=== PATIENT | female | born 1965 | race Caucasian/White ===

== ENCOUNTER 2016-08-06 15:41 | Inpatient (IN) | payer OTHER ==
[~2016-08-06] VITALS: Ht 167.6 cm; Wt 96.6 kg
[2016-08-06] MEDS ORDERED: ALBUTEROL FS 2.5 MG/3 ML VIAL.NEB ONE ×2 (16:23→18:07)
[2016-08-06] MEDS ORDERED: IPRATROPIUM NEB FS 0.5 MG/2.5 ML AMPUL.NEB ONE (16:23)
[2016-08-06] MEDS ORDERED: predniSONE 20 MG TABLET ONE (16:27)
[2016-08-06] MEDS ORDERED: predniSONE 20 MG TABLET PO ONE (16:30)
[2016-08-06] MEDS ORDERED: ALBUTEROL FS 2.5 MG/3 ML VIAL.NEB CONTNEB ONE (16:30)
[2016-08-06] MEDS ORDERED: IPRATROPIUM NEB FS 0.5 MG/2.5 ML AMPUL.NEB NEB ONE (16:30)
[2016-08-06] MEDS ORDERED: IV NS 0.9% 1,000 ML IV ONE (17:21)
[2016-08-06] MEDS ORDERED: IV SET PRIMARY PUMP SET 1 EA INFUS.SET MC ONE ×2 (17:29→22:17)
[2016-08-06] MEDS ORDERED: Magnesium 1GM/D5W 100ML PREMIX 100 ML IV ONE ×2 (17:29→18:08)
[2016-08-06] MEDS ORDERED: IV NS 0.9% 1,000 ML ONE ×2 (17:29→21:10)
[2016-08-06 17:38] LABS: BASOPHILS % (AUTO) 0.7 % (0.0-2.0); DIFF TOTAL % 100 %; EOSINOPHILS # (AUTO) 0.2 /CMM (0.0-0.7); EOSINOPHILS % (AUTO) 2.9 % (0.0-6.0); HEMATOCRIT 40 % (33-45); HEMOGLOBIN 13.2 g/dL (11.5-14.8); LYMPHOCYTES # (AUTO) 2.5 /CMM (0.8-4.8); LYMPHOCYTES % (AUTO) 38.4 % (20.0-44.0); MEAN CORPUSCULAR HEMOGLOBIN 29 PG (26.0-33.0); MEAN CORPUSCULAR HGB CONC 33 g/dl (31.0-36.0); MEAN CORPUSCULAR VOLUME 86 fL (82-100); MONOCYTES # (AUTO) 0.8 /CMM (0.1-1.30); NEUTROPHILS # (AUTO) 2.9 /CMM (1.8-8.9); PLATELET COUNT (AUTO) 205 /CMM (150-450); RED BLOOD CELL COUNT(AUTO) 4.64 MIL/uL (4.0-5.2); WHITE BLOOD COUNT (AUTO) 6.4 K/uL (4.3-11.0)
[2016-08-06] MEDS: Magnesium 1GM/D5W 100ML PREMIX 200 ML IV ONE ×2 (17:38→17:40)
[2016-08-06 17:39] LABS: CALCIUM, SERUM 9.1 mg/dL (8.5-10.1); CREATININE 0.8 mg/dL (0.6-1.3); POTASSIUM 3.2 mmol/L (3.5-5.1)
[2016-08-06 17:53] LABS: LACTIC ACID 1.7 mmol/L (0.4-2.0)
[2016-08-06] MEDS ORDERED: ALBUTEROL FS 2.5 MG/0.5 ML VIAL.NEB NEB ONE (18:30)
[2016-08-06] MEDS ORDERED: POTASSIUM CHLORIDE 20 MEQ TAB.PRT.SR PO ONE ×2 (18:56→19:00)
[2016-08-06] MEDS ORDERED: IOHEXOL-350 100 ML VIAL IV ONE (20:41)
[2016-08-06] MEDS ORDERED: IV NS 0.9% 250 ML IV ONE (20:41)
[2016-08-06] MEDS ORDERED: CT SWABBABLE VALVE TRANS SET 1 EA INFUS.SET MC ONE (20:41)
[2016-08-06] MEDS ORDERED: IV LR 1000 ML 1,000 ML IV ONE (21:00)
[2016-08-06] MEDS ORDERED: IV SET PRIMARY 1 EA INFUS.SET MC ONE ×2 (21:10→21:47)
[2016-08-06] MEDS ORDERED: IV LR 1000 ML 1,000 ML ONE (21:13)
[2016-08-06] MEDS ORDERED: LEVOFLOXACIN 750 MG /D5W 150ML 150 ML IV ONE (21:47)
[2016-08-06 22:00] VITALS: BP 113/70
[2016-08-06] MEDS ORDERED: HYDROCODONE/APAP 5/325MG 1 EACH TABLET PO PRN (22:00)
[2016-08-06] MEDS ORDERED: IPRATROPIUM NEB FS 0.5 MG/2.5 ML AMPUL.NEB NEB PRN (22:00)
[2016-08-06] MEDS ORDERED: Z GUARD REMEDY 2 OZ OINT TP PRN (22:00)
[2016-08-06] MEDS ORDERED: LEVOFLOXACIN 750 MG /D5W 150ML PIGGYBACK IV ONE (22:00)
[2016-08-06] MEDS ORDERED: MAG HYDROX/AL HYDROX/SIMETH 30 ML UDC PO PRN (22:00)
[2016-08-06] MEDS ORDERED: ALBUTEROL FS 2.5 MG/3 ML VIAL.NEB NEB PRN (22:00)
[2016-08-06] MEDS: LEVOFLOXACIN 750 MG /D5W 150ML 750 MG in PREMIX 1 EA IV SCH (22:00)
[2016-08-06] MEDS ORDERED: ACETAMINOPHEN 325 MG TABLET PO PRN (22:00)
[2016-08-06] MEDS ORDERED: ZOLPIDEM TARTRATE 5 MG TABLET PO PRN (22:00)
[2016-08-06] MEDS ORDERED: ONDANSETRON HCL/PF 4 MG/2 ML VIAL IVP PRN (22:00)
[2016-08-06] MEDS ORDERED: MAGNESIUM HYDROXIDE 30 ML UDC PO PRN (22:00)
[2016-08-06] MEDS ORDERED: IV D5/0.45 NACL 1,000 ML IV ONE (22:17)
[2016-08-06] MEDS ORDERED: SECONDARY IV SET 1 EA INFUS.SET MC ONE (22:18)
[2016-08-06 22:24] LABS: ABG BASE EXCESS -3.3 mmol/L; ABG HCO3 19.8 mmol/L; ABG PCO2 30.3 mmHg (35.0-45.0); ABG PH 7.434 (7.350-7.450); ABG PO2 93.5 mmHg (75.0-100.0); ABG TOTAL HEMOGLOBIN 13.1 G/dL (12.0-16.0); ALLEN TEST Pass; AaDO2 19.9 mmHg; O2Hb 95.3 % (94.0-97.0)
[2016-08-07] VITALS (7 sets, daily range): BP systolic 119–134; BP diastolic 65–85
[2016-08-07] MEDS: IV D5/0.45 NACL 1,000 ML IV PRN ×2 (00:15→18:42)
[2016-08-07] MEDS ORDERED: methylPREDNISolone SOD SUCC 40 MG/ML VIAL ONE (00:25)
[2016-08-07] MEDS ORDERED: methylPREDNISolone SOD SUCC 125 MG/2ML VIAL ONE ×2 (00:33→06:25)
[2016-08-07] MEDS: methylPREDNISolone SOD SUCC 125 MG/2ML VIAL IV SCH ×4 (00:43→17:29)
[2016-08-07] MEDS ORDERED: MAG HYDROX/AL HYDROX/SIMETH 30 ML UDC ONE (01:47)
[2016-08-07 07:21] LABS: BASOPHILS % (AUTO) 0.1 % (0.0-2.0); DIFF TOTAL % 100 %; HEMATOCRIT 37 % (33-45); HEMOGLOBIN 12.1 g/dL (11.5-14.8); LYMPHOCYTES # (AUTO) 0.8 /CMM (0.8-4.8); LYMPHOCYTES % (AUTO) 10.7 % (20.0-44.0); MEAN CORPUSCULAR HEMOGLOBIN 28 PG (26.0-33.0); MEAN CORPUSCULAR HGB CONC 33 g/dl (31.0-36.0); MEAN CORPUSCULAR VOLUME 86 fL (82-100); MONOCYTES # (AUTO) 0.1 /CMM (0.1-1.30); MONOCYTES % (AUTO) 1.4 % (2.0-12.0); NEUTROPHILS # (AUTO) 6.9 /CMM (1.8-8.9); NEUTROPHILS % (AUTO) 87.8 % (43.0-81.0); PLATELET COUNT (AUTO) 247 /CMM (150-450); WHITE BLOOD COUNT (AUTO) 7.9 K/uL (4.3-11.0)
[2016-08-07] MEDS: PANTOPRAZOLE 40 MG TABLET.DR PO SCH (07:30)
[2016-08-07 07:49] LABS: CALCIUM, SERUM 8.9 mg/dL (8.5-10.1); CREATININE 0.7 mg/dL (0.6-1.3); PHOSPHORUS 2.4 mg/dL (2.5-4.9); POTASSIUM 4.1 mmol/L (3.5-5.1)
[2016-08-07 08:18] LABS: THYROID STIMULATING HORMONE 0.334 uIU/mL (0.358-3.74)
[2016-08-07] MEDS: GUAIFENESIN/CODEINE 10 ML UDC PO PRN ×2 (10:44→14:51)
[2016-08-07 11:26] LABS: KETONES,URINE NEGATIVE (NEGATIVE); LEUKOCYTE ESTERASE ,URINE 1+ (NEGATIVE); PH,URINE 6.5 (5.0-8.0)
[2016-08-07 11:28] LABS: ADD UA MICROSCOPIC YES
[2016-08-07] MEDS ORDERED: K PHOS NEUTRAL 250 MG TABLET PO ONE (11:30)
[2016-08-07 11:40] LABS: ADD URINE CULTURE YES; RBC,URINE 0-2 /HPF (0-2)
[2016-08-07] MEDS ORDERED: SECONDARY IV SET 1 EA INFUS.SET MC ONE (21:22)
[2016-08-07] MEDS: LEVOFLOXACIN 750 MG /D5W 150ML 750 MG in PREMIX 1 EA IV SCH (22:18)
[2016-08-08] MEDS: methylPREDNISolone SOD SUCC 125 MG/2ML VIAL IV SCH ×4 (00:35→17:26)
[2016-08-08] MEDS: GUAIFENESIN/CODEINE 10 ML UDC PO PRN ×4 (00:40→21:47)
[2016-08-08 07:01] LABS: CALCIUM, SERUM 9.2 mg/dL (8.5-10.1); CREATININE 0.8 mg/dL (0.6-1.3); PHOSPHORUS 2.9 mg/dL (2.5-4.9); POTASSIUM 4.9 mmol/L (3.5-5.1)
[2016-08-08] MEDS: PANTOPRAZOLE 40 MG TABLET.DR PO SCH (07:30)
[2016-08-08 08:00] VITALS: BP 126/87
[2016-08-08 16:00] VITALS: BP 129/86
[2016-08-08] MEDS: IV D5/0.45 NACL 1,000 ML IV PRN (17:25)
[2016-08-08 20:00] VITALS: BP 140/85
[2016-08-08 20:55] VITALS: BP 140/85
[2016-08-08] MEDS: LEVOFLOXACIN 750 MG /D5W 150ML 750 MG in PREMIX 1 EA IV SCH (21:41)
[2016-08-09] MEDS: methylPREDNISolone SOD SUCC 125 MG/2ML VIAL IV SCH ×2 (00:35→06:09)
[2016-08-09] MEDS: GUAIFENESIN/CODEINE 10 ML UDC PO PRN (06:16)
[2016-08-09 06:53] LABS: CALCIUM, SERUM 8.8 mg/dL (8.5-10.1); CREATININE 0.7 mg/dL (0.6-1.3); POTASSIUM 4.2 mmol/L (3.5-5.1)
[2016-08-09 08:00] VITALS: BP 130/92
[2016-08-09] MEDS: PANTOPRAZOLE 40 MG TABLET.DR PO SCH (08:16)
[2016-08-09] MEDS: IV D5/0.45 NACL 1,000 ML IV PRN (10:01)
[2016-08-09] MEDS: GUAIFENESIN/D-METHORPHAN HB 5 ML UDC PO PRN ×2 (14:38→21:23)
[2016-08-09 16:00] VITALS: BP 123/72
[2016-08-09] MEDS: methylPREDNISolone SOD SUCC 40 MG/ML VIAL IV SCH (16:33)
[2016-08-09 20:00] VITALS: BP 128/82
[2016-08-09 20:34] VITALS: BP 128/82
[2016-08-09] MEDS ORDERED: LEVOFLOXACIN (750 MG) 750 MG TABLET PO SCH (22:00)
[2016-08-10] MEDS: GUAIFENESIN/D-METHORPHAN HB 5 ML UDC PO PRN ×2 (02:11→08:06)
[2016-08-10] MEDS: PANTOPRAZOLE 40 MG TABLET.DR PO SCH (07:30)
[2016-08-10 07:48] LABS: CALCIUM, SERUM 8.9 mg/dL (8.5-10.1); CREATININE 0.8 mg/dL (0.6-1.3); POTASSIUM 4.9 mmol/L (3.5-5.1)
[2016-08-10 08:00] VITALS: BP 125/76
[2016-08-10] MEDS: methylPREDNISolone SOD SUCC 40 MG/ML VIAL IV SCH (08:07)
[2016-08-10] MEDS: IV D5/0.45 NACL 1,000 ML IV PRN (08:53)
== END 2016-08-10 14:30 | disposition home or self-care (01) | DRG 139 ==
LOC: ER 16:08 → MED 21:50 → TELE 08-07 00:30 → MED 08-07 14:46
DX: J15.9 Unspecified bacterial pneumonia (principal); J96.01 Acute respiratory failure with hypoxia; N17.0 Acute kidney failure with tubular necrosis; E87.6 Hypokalemia; J45.901 Unspecified asthma with (acute) exacerbation
CPT/HCPCS: 36415; 36600; 71010-TC; 80048-TC; 80061-TC; 81000-TC; 83605-TC; 83735-TC; 84100-TC; 84443-TC; 85025-TC; 85378-TC; 87081-TC; 87086-TC; A4216; A4606; J1956; J2920; J2930; J3475; J3490; J7030; J7050; J7120; Q9967; Z7610

== ENCOUNTER 2016-08-26 23:03 | Emergency (ER) | payer OTHER ==
[~2016-08-26] VITALS: Ht 167.6 cm; Wt 93.0 kg
[2016-08-27] MEDS ORDERED: IPRATROPIUM NEB FS 0.5 MG/2.5 ML AMPUL.NEB NEB ONE (00:30)
[2016-08-27] MEDS ORDERED: predniSONE 20 MG TABLET PO ONE (00:30)
[2016-08-27] MEDS ORDERED: ALBUTEROL FS 2.5 MG/3 ML VIAL.NEB CONTNEB ONE (00:30)
--- NOTE | 2016-08-27 00:42 | NUR ---
blood drawn by wheel fitter. rt paged for sharif vogt.
[2016-08-27] MEDS ORDERED: ALBUTEROL FS 2.5 MG/3 ML VIAL.NEB ONE (00:47)
[2016-08-27 00:48] LABS: BASOPHILS # (AUTO) 0.1 /CMM (0.0-0.2); BASOPHILS % (AUTO) 1.5 % (0.0-2.0); EOSINOPHILS # (AUTO) 0.4 /CMM (0.0-0.7); EOSINOPHILS % (AUTO) 7.5 % (0.0-6.0); HEMATOCRIT 38 % (33-45); LYMPHOCYTES # (AUTO) 1.8 /CMM (0.8-4.8); LYMPHOCYTES % (AUTO) 34.5 % (20.0-44.0); MEAN CORPUSCULAR HEMOGLOBIN 29 PG (26.0-33.0); MEAN CORPUSCULAR HGB CONC 34 g/dl (31.0-36.0); MEAN CORPUSCULAR VOLUME 85 fL (82-100); MONOCYTES # (AUTO) 0.5 /CMM (0.1-1.30); MONOCYTES % (AUTO) 9.5 % (2.0-12.0); NEUTROPHILS # (AUTO) 2.5 /CMM (1.8-8.9); PLATELET COUNT (AUTO) 227 /CMM (150-450); RDW COEFFICIENT OF VARIATION 13.6 (11.5-15.0); RED BLOOD CELL COUNT(AUTO) 4.51 MIL/uL (4.0-5.2); WHITE BLOOD COUNT (AUTO) 5.2 K/uL (4.3-11.0)
[2016-08-27] MEDS ORDERED: IPRATROPIUM NEB FS 0.5 MG/2.5 ML AMPUL.NEB ONE (00:48)
--- NOTE | 2016-08-27 00:53 | NUR ---
rt at [facility] for hhn tx.
[2016-08-27 00:56] LABS: CALCIUM, SERUM 8.8 mg/dL (8.5-10.1); CREATININE 0.7 mg/dL (0.6-1.3); POTASSIUM 3.9 mmol/L (3.5-5.1)
[2016-08-27] MEDS ORDERED: predniSONE 20 MG TABLET ONE (01:26)
--- NOTE | 2016-08-27 02:12 | NUR ---
Patient discharged to home in stable condition. Written and verbal after care instructions given. Patient verbalizes understanding of instruction. ambulatory with a steady gait noted. pt aaox4 no acute distress noted, resp even and unlabored.
[2016-08-27 02:13] VITALS: BP 127/76
== END 2016-08-27 02:14 | disposition home or self-care (01) ==
LOC: ER 23:05
DX: J40 Bronchitis, not specified as acute or chronic (principal)
CPT/HCPCS: 36415; 71010; 80048; 85025; 94644; 99285; A4606; J7512; Z7610

== ENCOUNTER 2017-05-17 17:09 | Emergency (ER) | payer OTHER ==
[~2017-05-17] VITALS: Ht 167.6 cm; Wt 93.0 kg
[2017-05-17] MEDS ORDERED: Magnesium 1GM/D5W 100ML PREMIX 200 ML IV ONE ×2 (17:38→17:53)
[2017-05-17] MEDS ORDERED: ALBUTEROL FS 2.5 MG/3 ML VIAL.NEB ONE (17:47)
[2017-05-17] MEDS ORDERED: IPRATROPIUM NEB FS 0.5 MG/2.5 ML AMPUL.NEB ONE (17:47)
--- NOTE | 2017-05-17 17:49 | NUR ---
CALLED RT FOR BREATHING TX
--- NOTE | 2017-05-17 17:49 | NUR ---
LAC #20 IV ACCESS. BLOOD SAMPLE COLLECTED SENT TO LAB
[2017-05-17] MEDS ORDERED: DEXAMETHASONE SOD PHOSPHATE 10 MG/ML VIAL ONE (17:53)
[2017-05-17] MEDS ORDERED: DEXAMETHASONE SOD PHOSPHATE 10 MG/ML VIAL IV ONE (18:00)
[2017-05-17] MEDS ORDERED: ALBUTEROL FS 2.5 MG/3 ML VIAL.NEB CONTNEB ONE (18:00)
[2017-05-17] MEDS ORDERED: IPRATROPIUM NEB FS 0.5 MG/2.5 ML AMPUL.NEB NEB ONE (18:00)
--- NOTE | 2017-05-17 18:52 | NUR ---
Patient discharged to home in stable condition. Written and verbal after care instructions given. Patient verbalizes understanding of instruction.
--- NOTE | 2017-05-17 18:52 | NUR ---
IV removed. Catheter intact and site benign. Pressure and 4x4 applied to site. No bleeding noted.
[2017-05-17 19:01] VITALS: BP 140/90
== END 2017-05-17 19:01 | disposition home or self-care (01) ==
LOC: ER 17:11
DX: J40 Bronchitis, not specified as acute or chronic (principal); Z90.710 Acquired absence of both cervix and uterus
CPT/HCPCS: 71010; 87804 ×2; 94640; 96365; 96375; 99284; A4606; J1100; J3475; Z7610; 87400

== ENCOUNTER 2017-07-08 15:38 | Emergency (ER) | payer OTHER ==
[~2017-07-08] VITALS: Ht 167.6 cm; Wt 55.3 kg
[2017-07-08] MEDS ORDERED: IV NS 0.9% 1,000 ML BAG IV ONE (16:00)
[2017-07-08] MEDS ORDERED: ONDANSETRON HCL/PF 4 MG/2 ML VIAL IVP ONE (16:00)
[2017-07-08] MEDS ORDERED: ONDANSETRON HCL/PF 4 MG/2 ML VIAL ONE (16:02)
[2017-07-08 16:13] LABS: BASOPHILS % (AUTO) 0.6 % (0.0-2.0); EOSINOPHILS # (AUTO) 0.1 /CMM (0.0-0.7); EOSINOPHILS % (AUTO) 2.1 % (0.0-6.0); HEMATOCRIT 39 % (33-45); HEMOGLOBIN 13.8 g/dL (11.5-14.8); LYMPHOCYTES # (AUTO) 0.8 /CMM (0.8-4.8); LYMPHOCYTES % (AUTO) 28.6 % (20.0-44.0); MEAN CORPUSCULAR HEMOGLOBIN 30 PG (26.0-33.0); MEAN CORPUSCULAR HGB CONC 35 g/dl (31.0-36.0); MEAN CORPUSCULAR VOLUME 84 fL (82-100); MONOCYTES # (AUTO) 0.4 /CMM (0.1-1.30); MONOCYTES % (AUTO) 14.1 % (2.0-12.0); NEUTROPHILS # (AUTO) 1.5 /CMM (1.8-8.9); NEUTROPHILS % (AUTO) 54.6 % (43.0-81.0); PLATELET COUNT (AUTO) 133 /CMM (150-450); RDW COEFFICIENT OF VARIATION 12.2 (11.5-15.0); RED BLOOD CELL COUNT(AUTO) 4.68 MIL/uL (4.0-5.2); WHITE BLOOD COUNT (AUTO) 2.9 K/uL (4.3-11.0)
[2017-07-08 16:16] LABS: CREATININE 0.8 mg/dL (0.6-1.3); POTASSIUM 4.2 mmol/L (3.5-5.1)
[2017-07-08 16:22] LABS: ALBUMIN 3.9 g/dL (3.4-5.0); BILIRUBIN,DIRECT 0.1 mg/dL (0.0-0.2); BILIRUBIN,TOTAL 0.6 mg/dL (0.2-1.0); TOTAL PROTEIN, SERUM 7.5 g/dL (6.4-8.2)
[2017-07-08 17:22] VITALS: BP 116/68
[2017-07-08 17:32] LABS: BAND % (MANUAL) 10 % (0.0-5.0); BASOPHILS % (MANUAL) 0 % (0.0-2.0); EOSINOPHILS % (MANUAL) 1 % (0-4); LYMPHOCYTES % (MANUAL) 25 % (16-48); MONOCYTES % (MANUAL) 8 % (0-11.0); NEUTROPHILS % (MANUAL) 56 (42-76)
== END 2017-07-08 17:24 | disposition home or self-care (01) ==
LOC: ER 15:40
DX: R11.2 Nausea with vomiting, unspecified (principal); B34.9 Viral infection, unspecified; Z90.710 Acquired absence of both cervix and uterus
CPT/HCPCS: 36415; 80048; 80076; 83690; 85025; 96361; 96374; 99284; A4606; J2405; J7030; Z7610

== ENCOUNTER 2017-12-04 12:11 | Emergency (ER) | payer OTHER ==
[~2017-12-04] VITALS: Ht 167.6 cm; Wt 79.4 kg
--- NOTE | 2017-12-04 12:15 | NUR ---
PRESENTS TO ER C/O ABD PAIN W/ N/V X 2 DAYS. FEELING WEAK. A/OX 4, BREATHING EVEN AND UNLABORED. NO SOB, NAD, VITALS STABLE. SAFETY AND COMFORT MEASURES IN PLACE. AWAITING MD ORDERS.
--- NOTE | 2017-12-04 12:47 | NUR ---
NEW IV STARTED ON RAC, 18G, BLOOD DRAWN AND SENT TO LAB.
[2017-12-04] MEDS ORDERED: ONDANSETRON HCL/PF 4 MG/2 ML VIAL ONE (12:49)
[2017-12-04] MEDS ORDERED: ACETAMINOPHEN ES 500 MG TABLET ONE (12:49)
[2017-12-04] MEDS ORDERED: ALBUTEROL FS 2.5 MG/3 ML VIAL.NEB ONE (12:53)
[2017-12-04 12:54] LABS: BASOPHILS # (AUTO) 0.1 /CMM (0.0-0.2); BASOPHILS % (AUTO) 0.7 % (0.0-2.0); EOSINOPHILS % (AUTO) 1.9 % (0.0-6.0); HEMATOCRIT 41 % (33-45); HEMOGLOBIN 13.9 g/dL (11.5-14.8); LYMPHOCYTES # (AUTO) 1.3 /CMM (0.8-4.8); LYMPHOCYTES % (AUTO) 13.6 % (20.0-44.0); MEAN CORPUSCULAR HEMOGLOBIN 29 PG (26.0-33.0); MEAN CORPUSCULAR HGB CONC 34 g/dl (31.0-36.0); MEAN CORPUSCULAR VOLUME 85 fL (82-100); MONOCYTES # (AUTO) 0.7 /CMM (0.1-1.30); MONOCYTES % (AUTO) 7.3 % (2.0-12.0); NEUTROPHILS # (AUTO) 7.3 /CMM (1.8-8.9); NEUTROPHILS % (AUTO) 76.5 % (43.0-81.0); PLATELET COUNT (AUTO) 200 /CMM (150-450); RDW COEFFICIENT OF VARIATION 12.1 (11.5-15.0); WHITE BLOOD COUNT (AUTO) 9.6 K/uL (4.3-11.0)
[2017-12-04] MEDS ORDERED: IV NS 0.9% 1,000 ML BAG IV ONE (13:00)
[2017-12-04] MEDS ORDERED: ONDANSETRON HCL/PF 4 MG/2 ML VIAL IVP ONE (13:00)
[2017-12-04] MEDS ORDERED: ACETAMINOPHEN ES 500 MG TABLET PO ONE (13:00)
[2017-12-04] MEDS ORDERED: ALBUTEROL FS 2.5 MG/3 ML VIAL.NEB NEB ONE (13:00)
[2017-12-04 13:07] LABS: CALCIUM, SERUM 9.4 mg/dL (8.5-10.1); CREATININE 0.6 mg/dL (0.6-1.3); POTASSIUM 3.5 mmol/L (3.5-5.1)
[2017-12-04 13:12] LABS: ALBUMIN 3.9 g/dL (3.4-5.0); BILIRUBIN,DIRECT 0.2 mg/dL (0.0-0.2); TOTAL PROTEIN, SERUM 7.7 g/dL (6.4-8.2)
[2017-12-04] MEDS ORDERED: LEVOFLOXACIN (500MG) 500 MG TABLET PO ONE (13:30)
[2017-12-04] MEDS ORDERED: LEVOFLOXACIN (500MG) 500 MG TABLET ONE (13:51)
[2017-12-04 14:03] LABS: APPEARANCE,URINE Clear (CLEAR); BILIRUBIN,URINE Negative (NEGATIVE); BLOOD, URINE Negative Ery/uL (NEGATIVE); COLOR,URINE Yellow (YELLOW); KETONES,URINE 40 (NEGATIVE); LEUKOCYTE ESTERASE ,URINE Negative (NEGATIVE); NITRITE, URINE Negative (NEGATIVE); PROTEIN,URINE Negative (NEGATIVE); UGLUCOSE Negative (NEGATIVE); UROBILINOGEN,URINE 0.2 EU/dL (0.2)
[2017-12-04 14:08] LABS: BACTERIA,URINE None seen /HPF (None Seen); RBC,URINE 0-3 /HPF (0-2); SQUAMOUS EPITHELIAL CELL,UR Few /HPF (None Seen)
[2017-12-04 14:47] VITALS: BP 128/74
--- NOTE | 2017-12-04 14:48 | NUR ---
IV removed. Catheter intact and site benign. Pressure and 4x4 applied to site. No bleeding noted. Patient discharged to home in stable condition. Written and verbal after care instructions given. Patient verbalizes understanding of instruction.
== END 2017-12-04 14:48 | disposition home or self-care (01) ==
LOC: ER 12:12
DX: J22 Unspecified acute lower respiratory infection (principal); A41.9 Sepsis, unspecified organism; Z90.710 Acquired absence of both cervix and uterus
CPT/HCPCS: 36415; 71045-TC; 80048-TC; 80076-TC; 81000-TC; 83605-TC; 85025-TC; 87040-TC; 87086-TC; A4606; J2405; J7030; J7040; Z7610

== ENCOUNTER 2018-06-11 08:17 | Inpatient (IN) | payer OTHER ==
[~2018-06-11] VITALS: Ht 167.6 cm; Wt 102.5 kg
--- NOTE | 2018-06-11 08:25 | NUR ---
BIB SELF FROM HOME C/O CHEST PAIN SINCE 11PM LAST NIGHT, RADIATES TO L BACK,SHOULDER, PRESSURE LIKE PAIN, PS 8/10. ALERT AND OREINTED X4, BREATHING EVEN AND UNLABORED WITH NO DISTRESS NOTED. SKIN WARM TO TOUCH AND INTACT. AWAITING TO BE SEEN BY
[2018-06-11 08:59] LABS: BASOPHILS # (AUTO) 0.1 /CMM (0.0-0.2); BASOPHILS % (AUTO) 2.6 % (0.0-2.0); EOSINOPHILS % (AUTO) 6.3 % (0.0-6.0); HEMATOCRIT 43 % (33-45); HEMOGLOBIN 14.7 g/dL (11.5-14.8); LYMPHOCYTES # (AUTO) 1.9 /CMM (0.8-4.8); LYMPHOCYTES % (AUTO) 34.4 % (20.0-44.0); MEAN CORPUSCULAR HGB CONC 34 g/dl (31.0-36.0); MEAN CORPUSCULAR VOLUME 87 fL (82-100); MONOCYTES # (AUTO) 0.6 /CMM (0.1-1.30); NEUTROPHILS # (AUTO) 2.6 /CMM (1.8-8.9); NEUTROPHILS % (AUTO) 46.7 % (43.0-81.0); PLATELET COUNT (AUTO) 211 /CMM (150-450); RED BLOOD CELL COUNT(AUTO) 4.97 MIL/uL (4.0-5.2); WHITE BLOOD COUNT (AUTO) 5.6 K/uL (4.3-11.0)
[2018-06-11 09:10] LABS: CALCIUM, SERUM 9.2 mg/dL (8.5-10.1); CARBON DIOXIDE 27 mmol/L (21-32); CHLORIDE 104 mmol/L (98-107); CREATININE 0.8 mg/dL (0.6-1.3); GLUCOSE 139 mg/dL (74-106); POTASSIUM 4.1 mmol/L (3.5-5.1); SODIUM SERUM 139 mmol/L (136-145); UREA NITROGEN, BLOOD 14 mg/dL (7-18)
[2018-06-11 09:16] LABS: ALANINE AMINOTRANSFERASE 71 U/L (12-78); ALBUMIN 3.9 g/dL (3.4-5.0); ALKALINE PHOSPHATASE 133 U/L (46-116); ASPARTATE AMINOTRANSFERASE 43 U/L (15-37); BILIRUBIN,DIRECT 0.1 mg/dL (0.0-0.2); BILIRUBIN,TOTAL 0.5 mg/dL (0.2-1.0); TOTAL PROTEIN, SERUM 7.6 g/dL (6.4-8.2)
[2018-06-11] MEDS ORDERED: ASPIRIN 325 MG TABLET ONE (09:44)
[2018-06-11] MEDS ORDERED: ASPIRIN 325 MG TABLET PO ONE (10:00)
--- NOTE | 2018-06-11 10:02 | NUR ---
PATIENT REMAINS STABLE, NO DISTRESS NOTED. VS ARE STABLE. WILL CONTINUE TO MONITOR.
--- NOTE | 2018-06-11 11:18 | NUR ---
REPORT GIVEN TO 3W MED/SURG ANDREINA TO GONZALO TO MONITOR CONTINUITY OF CARE.
[2018-06-11 12:00] VITALS: BP 123/76
[2018-06-11 12:15] VITALS: BP 123/76
--- NOTE | 2018-06-11 12:15 | NUR ---
RECEIVED PATIENT FROM ER VIA [facility]. PATIENT IS AMBULATORY, WALKED FROM [facility] TO BED IN STEADY GAIT. A/OX4, ABLE TO MAKE NEEDS KNOWN. TOLERATING ROOM AIR, SATTING 96%, VS WNL. NOT IN ANY FORM OF DISTRESS, NO SOB. CHEST PAIN 7/10 ON LEFT SIDE, "PRESSURE", NON-RADIATING. WILL ADMINISTER PAIN MEDICATION ORDERED. NOTIFIED MD THAT PATIENT IS IN THE UNIT AND WAITING FOR ADMITTING ORDERS. P;ACED PATIENT ON TELEMONITOR, SR 72. KEPT PATIENT SAFE AND COMFORTABLE. ALL BELONGINGS CHECK, NOTED ON CHECKLIST. NO WOUNDS OR BRUISE PER PATIENT. REFUSED BODY CHECK. ORIENTED PATIENT TO THE ROOM, SHOWED PATIENT HOW TO USE CALL LIGHT. BED IN LOW/LOCKED POSITION, SIDERAILS UPX2, SEMIFOWLERS POSITION, CALL LIGHT IN REACH. WILL CONTINUE TO MONIOTR ACCORDINGLY.
[2018-06-11] MEDS ORDERED: NITROGLYCERIN 0.4 MG/TAB BOTTLE SL PRN (12:30)
[2018-06-11] MEDS ORDERED: MORPHINE SULFATE INJ 4 MG/ML DISP.SYRIN IV PRN (12:30)
[2018-06-11] MEDS: ASPIRIN 81 MG TAB.CHEW PO SCH (12:57)
[2018-06-11] MEDS: CARVEDILOL 6.25 MG TABLET PO SCH ×2 (12:57→21:02)
--- NOTE | 2018-06-11 13:51 | NUR ---
REASSESSED PATIENT'S CHEST PAIN. PATIENT STATED A LITTLE BIT BETTER BUT STILL THERE. OFFERED PAIN MEDICATIONS X3 TIMES BUT PATIENT REFUSED. PATIENT STATED "NOT TOO MUCH MEDICATION, I'LL LET YOU KNOW IF I NEED ONE". WILL CONTINUE TO MONIOTR ACCORDINGLY.
[2018-06-11 15:30] VITALS: BP 122/87
--- NOTE | 2018-06-11 19:11 | NUR ---
RN CLOSING NOTES PATIENT IN STABLE CONDITION. ALL NEEDS ATTENDED AND PROVIDED. ALL DUE MEDICATIONS GIVEN ORDERED. KEPT PATENT SAFE AND COMFORTABLE. BED IN LOW/LOCKED POSITION, SIDERAILS UPX2, CALL LIGHT IN REACH. WILL CONTINUE TO MONITOR ACCORDINGLY.
--- NOTE | 2018-06-11 19:20 | NUR ---
TELE/RN OPENING NOTES PT RECEIVED AWAKE, RESTING COMFORTABLY IN BED. ON ROOM AIR, BREATHING EVEN AND UNLABORED. DENIES SOB, IN NO ACUTE DISTRESS. NOTES 5-10 CHEST DISCOMFORT HOWEVER REFUSING PRN NITRO AND MORPHINE AT THIS TIME. IV TO RIGHT HAND PATENT AND INTACT. EXTERNAL AUTO TIRE RECAPPER SHOWING SINUS RHYTHM 73. FOR LEXISCAN IN AM, WILL KEEP NPO POST MIDNIGHT. PT AWARE AND VERBALIZES UNDERSTANDING. CONSENTS SIGNED AND IN THE CHART. BED IN LOW/LOCKED POSITION WITH CALL LIGHT IN REACH. BILATERAL UPPER SIDE RAILS IN PLACE. WILL CONTINUE TO MONITOR
[2018-06-11 20:00] VITALS: BP 114/72
[2018-06-12] VITALS: BP 121/87
[2018-06-12 04:00] VITALS: BP 124/75
--- NOTE | 2018-06-12 06:42 | NUR ---
TELE/RN CLOSING NOTES PT WITH EYES CLOSED. OPENS EYES TO NAME. A/OX3. ON ROOM AIR, BREATHING EVEN AND UNLABORED. DENIES SOB, CHEST PAIN, N/V AT THIS TIME. IN NO ACUTE DISTRESS. ON EXTERNAL VAT TENDER SHOWING SB 58. IV TO RIGHT HAND PATENT AND INTACT. KEPT NPO POST MIDNIGHT FOR STRESS TEST. PT AWARE AND VERBALIZES UNDERSTANDING. NO SIGNIFICANT CHANGES OVERNIGHT. ALL NEEDS MET. KEPT COMFORTABLE DURING SHIFT. BED REMAINS IN LOW/LOCKED POSITION WITH CALL LIGHT IN REACH. BILATERAL UPPER SIDE RAILS IN PLACE. WILL ENDORSE TO DAY SHIFT RN KJ.
[2018-06-12 07:23] LABS: BASOPHILS # (AUTO) 0.1 /CMM (0.0-0.2); BASOPHILS % (AUTO) 2.5 % (0.0-2.0); HEMATOCRIT 41 % (33-45); HEMOGLOBIN 13.9 g/dL (11.5-14.8); LYMPHOCYTES # (AUTO) 1.9 /CMM (0.8-4.8); LYMPHOCYTES % (AUTO) 37.5 % (20.0-44.0); MEAN CORPUSCULAR HGB CONC 34 g/dl (31.0-36.0); MEAN CORPUSCULAR VOLUME 87 fL (82-100); MONOCYTES # (AUTO) 0.5 /CMM (0.1-1.30); MONOCYTES % (AUTO) 9.6 % (2.0-12.0); NEUTROPHILS # (AUTO) 2.2 /CMM (1.8-8.9); NEUTROPHILS % (AUTO) 44.4 % (43.0-81.0); PLATELET COUNT (AUTO) 205 /CMM (150-450); RED BLOOD CELL COUNT(AUTO) 4.72 MIL/uL (4.0-5.2); WHITE BLOOD COUNT (AUTO) 5.1 K/uL (4.3-11.0)
[2018-06-12 07:36] LABS: CALCIUM, SERUM 8.9 mg/dL (8.5-10.1); CREATININE 0.8 mg/dL (0.6-1.3); MAGNESIUM 1.8 mg/dL (1.8-2.4); PHOSPHORUS 4.4 mg/dL (2.5-4.9); POTASSIUM 4.6 mmol/L (3.5-5.1)
[2018-06-12 08:00] VITALS: BP 126/86
[2018-06-12] MEDS ORDERED: REGADENOSON 0.4 MG/5 ML DISP.SYRIN IVP ONE (08:00)
--- NOTE | 2018-06-12 08:00 | NUR ---
TELE/RN OPENING NOTES PT RECEIVED AWAKE, RESTING COMFORTABLY IN BED. ON ROOM AIR, BREATHING EVEN AND UNLABORED. DENIES SOB, IN NO ACUTE DISTRESS.IV H/L TO RIGHT HAND PATENT AND INTACT. EXTERNAL WEIGHER BULKER SHOWING SINUS RHYTHM 73. FOR SANJEEV THIS AM, WILL KEEP NPO .PT AWARE AND VERBALIZES UNDERSTANDING. CONSENTS SIGNED AND IN THE CHART. BED IN LOW/LOCKED POSITION WITH CALL LIGHT IN REACH. BILATERAL UPPER SIDE RAILS IN PLACE. WILL CONTINUE TO MONITOR
--- NOTE | 2018-06-12 08:20 | NUR ---
PT WAS BROUGHT IN NUCLEAR MED FOR LEXISCAN STRESS TEST PROCEDURE.REMAINS NPO.
[2018-06-12] MEDS ORDERED: ATORVASTATIN 10 MG TABLET PO SCH (09:00)
[2018-06-12] MEDS: ASPIRIN 81 MG TAB.CHEW PO SCH (09:42)
[2018-06-12] MEDS: CARVEDILOL 6.25 MG TABLET PO SCH (09:42)
[2018-06-12] MEDS ORDERED: ACETAMINOPHEN 325 MG TABLET PO PRN (10:30)
--- NOTE | 2018-06-12 10:33 | NUR ---
NM:CARDIAC STRESS TEST WAS COMPLETED. TECH:RB
[2018-06-12 12:30] VITALS: BP 119/86
--- NOTE | 2018-06-12 16:50 | NUR ---
DISCHARGED HOME WITH STABLE V/S.ACCOMPANIED BY HER VIA PRIVATE CAR.DENIES ANY CHEST PAIN,N/V OR ANY DISTRESS OR DISCOMFORT.DISCHARGE INSTRUCTIONS,MED RECONCILIATION GIVEN TO THE PT.IV H/L TO RT HAND REMOVED WITH NO BLEEDING NOTED.PT TOLERATED WELL.
== END 2018-06-12 17:00 | disposition home or self-care (01) | DRG 241 ==
LOC: ER 08:19 → TELE 11:42 → MED 06-12 09:07
PROVIDERS: ADMIT Internal Medicine; ATTEND Nurse Practitioner Acute Care
DX: K27.9 Peptic ulcer, site unspecified, unspecified as acute or chronic, without hemorrhage or perforation (principal); E66.9 Obesity, unspecified; I10 Essential (primary) hypertension; Z90.710 Acquired absence of both cervix and uterus; Z68.36 Body mass index [BMI] 36.0-36.9, adult; Z71.3 Dietary counseling and surveillance
CPT/HCPCS: 36415; 71045-TC; 80048-TC; 80061-TC; 80076-TC; 83735-TC; 84100-TC; 84484-TC; 85025-TC; 85730-TC; 87081-TC; 93307-TC; 93970-TC; A9502; G0378; J2270; J2785

== ENCOUNTER 2019-02-26 09:48 | Emergency (ER) | payer OTHER ==
[~2019-02-26] VITALS: Ht 167.6 cm; Wt 100.2 kg
--- NOTE | 2019-02-26 09:55 | NUR ---
BIB FAMILY, C/O "PRESSURE ON MY CHEST X1 DAY, ABDOMINAL AND BACK PAIN." -N/V, +HEADACHE. TO ER BED 12, HOOKED TO FURNACE COMBUSTION ANALYST, BREATHING COREY AND UNLABORED, NOT IN DISTRESS, CHANGED TO [facility]ICY ANALYST AT BEDSIDE, DR CALDWELL AT BEDSIDE FOR EVAL.
[2019-02-26 10:09] LABS: BASOPHILS # (AUTO) 0.2 /CMM (0.0-0.2); BASOPHILS % (AUTO) 3.7 % (0.0-2.0); EOSINOPHILS % (AUTO) 4.1 % (0.0-6.0); HEMATOCRIT 43 % (33-45); HEMOGLOBIN 14.6 g/dL (11.5-14.8); LYMPHOCYTES # (AUTO) 2.2 /CMM (0.8-4.8); LYMPHOCYTES % (AUTO) 39.9 % (20.0-44.0); MEAN CORPUSCULAR HGB CONC 34 g/dl (31.0-36.0); MEAN CORPUSCULAR VOLUME 87 fL (82-100); MONOCYTES # (AUTO) 0.5 /CMM (0.1-1.30); MONOCYTES % (AUTO) 9.2 % (2.0-12.0); NEUTROPHILS # (AUTO) 2.4 /CMM (1.8-8.9); NEUTROPHILS % (AUTO) 43.1 % (43.0-81.0); PLATELET COUNT (AUTO) 233 /CMM (150-450); RED BLOOD CELL COUNT(AUTO) 4.86 MIL/uL (4.0-5.2); WHITE BLOOD COUNT (AUTO) 5.5 K/uL (4.3-11.0)
[2019-02-26 10:19] LABS: CALCIUM, SERUM 9.4 mg/dL (8.5-10.1); CARBON DIOXIDE 28 mmol/L (21-32); CHLORIDE 105 mmol/L (98-107); CREATININE 0.7 mg/dL (0.6-1.3); GLUCOSE 134 mg/dL (74-106); POTASSIUM 3.8 mmol/L (3.5-5.1); SODIUM SERUM 140 mmol/L (136-145); UREA NITROGEN, BLOOD 17 mg/dL (7-18)
[2019-02-26] MEDS ORDERED: IBUPROFEN 400 MG TABLET ONE (10:48)
[2019-02-26 10:56] VITALS: BP 142/84
--- NOTE | 2019-02-26 10:56 | NUR ---
IV removed. Catheter intact and site benign. Pressure and 4x4 applied to site. No bleeding noted.Patient discharged to home in stable condition. Written and verbal after care instructions given. Patient verbalizes understanding of instruction.
[2019-02-26] MEDS ORDERED: IBUPROFEN 400 MG TABLET PO ONE (11:00)
== END 2019-02-26 10:57 | disposition home or self-care (01) ==
LOC: ER 09:52
DX: R10.13 Epigastric pain (principal); R07.89 Other chest pain; I10 Essential (primary) hypertension; Z90.710 Acquired absence of both cervix and uterus
CPT/HCPCS: 36415; 71045-TC; 80048-TC; 84484-TC; 85025-TC

== ENCOUNTER 2019-03-03 09:57 | Inpatient (IN) | payer OTHER ==
[~2019-03-03] VITALS: Ht 170.2 cm; Wt 101.2 kg
--- NOTE | 2019-03-03 10:13 | NUR ---
CAME IN FOR "Abdominal pain started couple days worse now. +nausea", TO ER BED 7, HOOKED TO MONITOR, CHANGED TO GOWN, PROVIDED W WARM BLANKET, AWAITING MD LOPEZ.
--- NOTE | 2019-03-03 11:18 | NUR ---
DR LUNDBERG AT BEDSIDE FOR EVAL.
[2019-03-03 11:29] LABS: BASOPHILS # (AUTO) 0.1 /CMM (0.0-0.2); EOSINOPHILS % (AUTO) 3.8 % (0.0-6.0); HEMATOCRIT 44 % (33-45); HEMOGLOBIN 14.9 g/dL (11.5-14.8); LYMPHOCYTES # (AUTO) 2.1 /CMM (0.8-4.8); LYMPHOCYTES % (AUTO) 41.3 % (20.0-44.0); MEAN CORPUSCULAR HGB CONC 34 g/dl (31.0-36.0); MEAN CORPUSCULAR VOLUME 88 fL (82-100); MONOCYTES # (AUTO) 0.6 /CMM (0.1-1.30); MONOCYTES % (AUTO) 11.6 % (2.0-12.0); NEUTROPHILS # (AUTO) 2.1 /CMM (1.8-8.9); NEUTROPHILS % (AUTO) 41.3 % (43.0-81.0); PLATELET COUNT (AUTO) 225 /CMM (150-450); RED BLOOD CELL COUNT(AUTO) 5.02 MIL/uL (4.0-5.2); WHITE BLOOD COUNT (AUTO) 5.1 K/uL (4.3-11.0)
[2019-03-03] MEDS ORDERED: ONDANSETRON HCL/PF 4 MG/2 ML VIAL IVP ONE (11:30)
[2019-03-03] MEDS ORDERED: IV NS 0.9% 1,000 ML BAG IV ONE (11:30)
[2019-03-03] MEDS ORDERED: HYDROMORPHONE INJ 2 MG/ML DISP.SYRIN IV ONE (11:30)
[2019-03-03] MEDS ORDERED: ONDANSETRON HCL/PF 4 MG/2 ML VIAL ONE ×2 (11:32→11:49)
[2019-03-03] MEDS ORDERED: MORPHINE SULFATE INJ 4 MG/ML DISP.SYRIN ONE ×2 (11:32→13:40)
--- NOTE | 2019-03-03 11:36 | NUR ---
PATIENT REFUSED MORPHINE AND DULCE, MADE MD AWARE, RECEIVED VERBAL ORDER OF TORADOL 30MG IV. CARRIED OUT
[2019-03-03] MEDS ORDERED: KETOROLAC TROMETHAMINE INJ 30 MG/ML VIAL ONE (11:38)
[2019-03-03 11:47] LABS: ALBUMIN 4.2 g/dL (3.4-5.0); BILIRUBIN,TOTAL 0.4 mg/dL (0.2-1.0); POTASSIUM 3.9 mmol/L (3.5-5.1)
--- NOTE | 2019-03-03 11:50 | NUR ---
PATIENT REQUESTED TO HAVE THE ZOFRAN FOR NAUSEA, MADE MD AWARE.
[2019-03-03 11:57] LABS: BILIRUBIN,DIRECT 0.1 mg/dL (0.0-0.2); CALCIUM, SERUM 9.2 mg/dL (8.5-10.1); CREATININE 0.7 mg/dL (0.6-1.3); TOTAL PROTEIN, SERUM 7.6 g/dL (6.4-8.2)
[2019-03-03] MEDS ORDERED: KETOROLAC TROMETHAMINE INJ 30 MG/ML VIAL IV ONE (12:00)
[2019-03-03] MEDS ORDERED: ONDANSETRON HCL/PF 4 MG/2 ML VIAL IV ONE (12:00)
[2019-03-03] MEDS ORDERED: MORPHINE SULFATE INJ 2 MG/ML DISP.SYRIN IV ONE ×2 (12:00→14:00)
--- NOTE | 2019-03-03 12:03 | NUR ---
WHEELED OUT VIA RNEY FOR CT SCAN
[2019-03-03 12:53] LABS: APPEARANCE,URINE Clear (CLEAR); BILIRUBIN,URINE Negative (NEGATIVE); BLOOD, URINE Negative Ery/uL (NEGATIVE); COLOR,URINE Yellow (YELLOW); KETONES,URINE Negative (NEGATIVE); LEUKOCYTE ESTERASE ,URINE Small (NEGATIVE); NITRITE, URINE Negative (NEGATIVE); PH,URINE 5.5 (5.0-8.0); PROTEIN,URINE Negative (NEGATIVE); UGLUCOSE Negative (NEGATIVE); UROBILINOGEN,URINE 0.2 EU/dL (0.2)
--- NOTE | 2019-03-03 13:03 | NUR ---
TECH AT BEDSIDE FOR REPEAT EKG
[2019-03-03] MEDS ORDERED: ASPIRIN 325 MG TABLET ONE (13:40)
--- NOTE | 2019-03-03 13:44 | NUR ---
GAVE MOVESHEET TO ADMITING
[2019-03-03] MEDS ORDERED: CIPROFLOXACIN IV RTU 200 ML IV ONE (13:49)
[2019-03-03] MEDS ORDERED: METRONIDAZOLE 500MG/ NS 100ML 100 ML IV ONE (13:49)
[2019-03-03] MEDS ORDERED: CIPROFLOXACIN IV RTU 400 MG in PREMIX 1 EA IV SCH (14:00)
[2019-03-03] MEDS ORDERED: FLAGYL/NS RTU 500 MG/100 ML PIGGYBACK IV ONE (14:00)
[2019-03-03] MEDS ORDERED: ASPIRIN 325 MG TABLET PO ONE (14:00)
--- NOTE | 2019-03-03 14:09 | NUR ---
PAGED CAYETANO DEL VALLE
--- NOTE | 2019-03-03 14:12 | NUR ---
NURSING SUP SAYS NO BED YET
[2019-03-03 14:43] LABS: BACTERIA,URINE None seen /HPF (None Seen); RBC,URINE 0-2 /HPF (0-2); SQUAMOUS EPITHELIAL CELL,UR Rare /HPF (None Seen)
--- NOTE | 2019-03-03 16:00 | NUR ---
107 TELE; CAYETANO DEL VALLE; ABDOMINAL PAIN, PANNICULITIS, NSTEMI
--- NOTE | 2019-03-03 16:07 | NUR ---
REPORT GIVEN TO SOON OF TELE UNIT
--- NOTE | 2019-03-03 16:30 | NUR ---
SAWMILL EQUIPMENT OPERATOR NOTES ADMITTED THIS PATIENT FROM ER, DX ABDOMINAL PAIN BY DR. CAYETANO DEL VALLE. ACCOMPANIED BY DAUGHTER, AO X 3, ABLE TO MAKE NEEDS KNOWN, ON ROOM AIR, NO SOB, SINUS RHYTHM HR 66 ON TELEMETRY. C/O ABDOMINAL PAIN 4/10 SHARP. NO SKIN ISSUES, RT HAND G 20 AND LEFT HAND G20 IV SITES BOTH FLUSHES WELL. BOTH SITES CLEAR. BRP WITH ASSIST. UNIT ORIENTATION DONE AND USE OF CALL LIGHT. BED LOW LOCKED. SAFETY MEASURES IN PLACE. DR. CAYETANO DEL VALLE INFORMED OF ADMISSION. WILL CONT TO MONITOR.
[2019-03-03 16:40] VITALS: BP 123/70
--- NOTE | 2019-03-03 18:15 | NUR ---
RN NOTES PATIENT COMPLAINED OF CHEST PRESSURE, PLACED ON O2 AT 2L NASAL CANULA AND EKG REQUESTED.
--- NOTE | 2019-03-03 18:49 | NUR ---
RN NOTES PLACED A CALL TO DR. CAYETANO DEL VALLE VIA EXCHANGE FOR ADMIT ORDERS. AWAITING RETURN CALL.
--- NOTE | 2019-03-03 18:57 | NUR ---
RN NOTES EKG RESULT FORWARDED TO DR. CAYETANO DEL VALLE.
--- NOTE | 2019-03-03 19:10 | NUR ---
RN OPENING NOTES: PATIENT IN BED, AWAKE, AND VERBALLY RESPONSIVE. A&OX3. NO SOB. RIGHT HAND AND LEFT FOREARM IV SITES 20G INTACT, PATENT, AND SALINE FLUSHED. ON TELE MONITOR = SR. PATIENT ON RA SATURATING AT 99%. BED IN LOWEST POSITION. CALL LIGHT PLACED WITHIN REACH. WILL CONT. TO MONITOR.
--- NOTE | 2019-03-03 19:30 | NUR ---
PATTERN REPAIR PERSON NOTES PAGED EPIC CVT TECH FOR ADMITTING ORDERS. AWAITING CALL BACK.
--- NOTE | 2019-03-03 19:46 | NUR ---
REPAIRER HELPER NOTES PER DR DEL VALLE. CARDIET DIET.
[2019-03-03 20:00] VITALS: BP 118/80
[2019-03-03] MEDS ORDERED: ENOXAPARIN SODIUM 40 MG/0.4 ML DISP.SYRIN SQ SCH (20:00)
[2019-03-03] MEDS ORDERED: ACETAMINOPHEN 325 MG TABLET PO PRN (20:00)
[2019-03-03] MEDS ORDERED: Z GUARD REMEDY 2 OZ OINT TP PRN (20:00)
[2019-03-03] MEDS ORDERED: HYDROCODONE/APAP 5/325MG 1 EACH TABLET PO PRN (20:00)
[2019-03-03] MEDS ORDERED: ONDANSETRON HCL/PF 4 MG/2 ML VIAL IVP PRN (20:00)
[2019-03-03] MEDS ORDERED: ZOLPIDEM TARTRATE 5 MG TABLET PO PRN (20:00)
[2019-03-03] MEDS ORDERED: ATORVASTATIN 10 MG TABLET PO SCH (22:00)
--- NOTE | 2019-03-03 22:27 | NUR ---
APPRENTICE JOCKEY NOTES PT SLEEPING, COMFORTABLE NO RESPIRATORY DISTRESS NOTED.
[2019-03-04] VITALS: BP 124/81
[2019-03-04 04:00] VITALS: BP_SYST 111; BP_SYST 116; BP_DIAS 66
[2019-03-04 06:16] LABS: ALBUMIN 3.3 g/dL (3.4-5.0); BILIRUBIN,TOTAL 0.4 mg/dL (0.2-1.0); CALCIUM, SERUM 8.5 mg/dL (8.5-10.1); CREATININE 0.7 mg/dL (0.6-1.3); MAGNESIUM 1.8 mg/dL (1.8-2.4); PHOSPHORUS 4.4 mg/dL (2.5-4.9); POTASSIUM 3.5 mmol/L (3.5-5.1); TOTAL PROTEIN, SERUM 6.4 g/dL (6.4-8.2)
[2019-03-04 06:21] LABS: BASOPHILS # (AUTO) 0.1 /CMM (0.0-0.2); EOSINOPHILS % (AUTO) 4.2 % (0.0-6.0); HEMATOCRIT 40 % (33-45); HEMOGLOBIN 13.5 g/dL (11.5-14.8); LYMPHOCYTES # (AUTO) 1.9 /CMM (0.8-4.8); LYMPHOCYTES % (AUTO) 41.8 % (20.0-44.0); MEAN CORPUSCULAR HGB CONC 34 g/dl (31.0-36.0); MEAN CORPUSCULAR VOLUME 87 fL (82-100); MONOCYTES # (AUTO) 0.5 /CMM (0.1-1.30); MONOCYTES % (AUTO) 10.4 % (2.0-12.0); NEUTROPHILS # (AUTO) 1.9 /CMM (1.8-8.9); NEUTROPHILS % (AUTO) 41.6 % (43.0-81.0); PLATELET COUNT (AUTO) 200 /CMM (150-450); RED BLOOD CELL COUNT(AUTO) 4.54 MIL/uL (4.0-5.2); WHITE BLOOD COUNT (AUTO) 4.6 K/uL (4.3-11.0)
[2019-03-04 06:28] LABS: THYROID STIMULATING HORMONE 1.877 uIU/mL (0.358-3.74)
--- NOTE | 2019-03-04 06:53 | NUR ---
RN CLOSING NOTE: PATIENT IN BED, AWAKE, AND VERBALLY RESPONSIVE. NO SOB. NO C/O ABDOMINAL PAIN OR NAUSEA AT THIS TIME. WILL ENDORSE TO AM SHIFT NURSE FOR CONTINUITY OF CARE.
--- NOTE | 2019-03-04 07:30 | NUR ---
RN NOTES RECEIVED PATIENT SITTING BY THE SIDE OF THE BED. A/O X4, ABLE TO MAKE NEEDS KNOWN. NOT ON ANY FORM OF DISTRESS. ON ROOM AIR. BREATHING UNLABORED. WITH COMPLAINTS OF HEADACHE- WILL ADMINISTER PRN MEDICATION PER REQUEST. SINUS RHYTHM ON THE TELEMONITOR WITH HR ON THE 70'S. IV ACCESS ON THE R HAND AND L HAND BOTH IN PLACE AND INTACT, PATENT, SALINE LOCK. PATIENT ENCOURAGE TO VERBALIZE FEELINGS AND CONCERNS, CALL HOR HELP AND ASSISTANCE, CALL LIGHT PLACED WITHIN REACH. SAFETY MEASURES IN PLACE WILL CONTINUE TO MONITOR AD ATTEND TO NEEDS
[2019-03-04 08:00] VITALS: BP 140/92
[2019-03-04] MEDS ORDERED: ASPIRIN EC 81 MG TABLET.DR PO SCH (09:00)
[2019-03-04] MEDS ORDERED: IV NS 0.9% 250 ML IV ONE (10:29)
[2019-03-04] MEDS ORDERED: CT SWABBABLE VALVE TRANS SET 1 EA INFUS.SET MC ONE (10:29)
[2019-03-04] MEDS ORDERED: IOHEXOL-350 100 ML VIAL IV ONE (10:29)
[2019-03-04] MEDS ORDERED: METOPROLOL TARTRATE INJ 5 MG/5 ML AMPUL ONE ×5 (10:29→11:25)
--- NOTE | 2019-03-04 10:30 | NUR ---
RN NOTES WITH ORDER FOR CTA HEART WITH 3D IMAGING. CONSENT OBTAINED FROM THE PATIENT HERSELF.
[2019-03-04] MEDS ORDERED: NITROGLYCERIN 0.4 MG/TAB BOTTLE ONE (10:40)
--- NOTE | 2019-03-04 10:40 | NUR ---
RN NOTES PATIENT ON RELATIONSHIP EXECUTIVE FOR CTA HEART BUT HAVE VERBALIZED " I AFRAID" PATIENT WAS INFORMED THAT SHE WILL BE CLOSED WATCHED DURING THE PROCEDURE AND THAT SHE HAS UNDERGONE THE SAME PROCEDURE YESTERDAY THE ONLY DIFFERENCE IS THAT THE ONE TODAY FOCUSES ON THE HEART. BUT ALSO REITERATED THAT WE ARE NOT GONNA FORCE HER DOM UNDERGO SOMETHING THAT SHE IS COMFORTABLE WITH. PATIENT LEFT TO THINK ABOUT PROCEDURE AND ENCOURAGE TO CALL FAMILY TO ASK FOR THEIR OPINION
[2019-03-04] MEDS ORDERED: NITROGLYCERIN 0.4 MG/TAB BOTTLE SL ONE (11:00)
[2019-03-04] MEDS ORDERED: METOPROLOL TARTRATE INJ 5 MG/5 ML AMPUL IVP ONE (11:00)
[2019-03-04] MEDS: METOPROLOL TARTRATE INJ 5 MG/5 ML AMPUL IVP PRN ×4 (11:05→11:20)
--- NOTE | 2019-03-04 11:50 | NUR ---
RN NOTES PATIENT AGREED TO UNDERGO CTA. Addendum: 03/04/19 at 1308 by ADRIANO NATHAN RN ERROR IN TIME. AURE BEEN 1055
--- NOTE | 2019-03-04 11:50 | NUR ---
RN NOTES PATIENT BACK FROM CTA OF THE HEART. NOT ON ANY FORM OF DISTRESS. ABLE TO PROCEDURE WELL. ENCOURAGE TO INCREASE WATER INTAKE AND TO VERBALIZE FEELING AND CONCERNS. WILL CONTINUE TO MONITOR
[2019-03-04 12:00] VITALS: BP 115/79
[2019-03-04] MEDS ORDERED: PRED20TA PO (14:17)
[2019-03-04] MEDS ORDERED: ATOR20TA PO (14:17)
--- NOTE | 2019-03-04 15:00 | NUR ---
RN NOTES DR. DEL VALLE WITH ORDERS FOR DISCHARGE ORDERS NOTED AND CARRIED OUT
--- NOTE | 2019-03-04 15:20 | NUR ---
RN NOTES PATIENT OUT OF THE UNIT AMBULATORY ACCOMPANIED BY SON AND DAUGHTER. ALL QUESTIONS AND CONCERNS ADDRESSED APPROPRIATELY. ALL DISCHARGE AND MEDICATION INSTRUCTION GIVEN TO THE PATIENT. ENCOURAGE TO FOLLOW UP WITH PRIMARY CARE PHYSICIAN IN ONE WEEK. ALL BELONGINGS AND VALUABLES ACCOUNTED FOR AND RETURNED TO THE PATIENT. CLOTHES WORN. IV SITES AND ID BAND REMOVED.
== END 2019-03-04 15:30 | disposition home or self-care (01) | DRG 254 ==
LOC: ER 09:57 → TELE1 15:56
PROVIDERS: ADMIT Nurse Practitioner Acute Care; ATTEND Nurse Practitioner Acute Care
DX: K65.4 Sclerosing mesenteritis (principal); E66.9 Obesity, unspecified; E78.5 Hyperlipidemia, unspecified; I10 Essential (primary) hypertension; Z68.34 Body mass index [BMI] 34.0-34.9, adult; I20.9 Angina pectoris, unspecified
CPT/HCPCS: 36415; 75574; 80048-TC; 80053-TC; 80061-TC; 80076-TC; 81000-TC; 83540-TC; 83605-TC; 83690-TC; 83735-TC; 84100-TC; 84443-TC; 84484-TC; 85025-TC; 87081-TC; 87086-TC; 93307-TC; A4216; G0378; J0744; J1650; J1885; J2270; J2405; J3490; J7030; J7050; Q9967

== ENCOUNTER 2019-05-29 12:50 | Inpatient (IN) | payer OTHER ==
[~2019-05-29] VITALS: Ht 170.2 cm; Wt 100.4 kg
[~2019-05-29 12:50] MED LIST: ATOR20TA PO; PRED20TA PO
--- NOTE | 2019-05-29 13:06 | NUR ---
nola, c/o chest sharp pain x 2 days, and RLQ radiating to R lower back started this morning, pt awake, alert, pt to bed 7, -sob, pending md aguilar
[2019-05-29 13:36] LABS: BASOPHILS # (AUTO) 0.1 /CMM (0.0-0.2); BASOPHILS % (AUTO) 0.7 % (0.0-2.0); EOSINOPHILS % (AUTO) 0.4 % (0.0-6.0); HEMATOCRIT 43 % (33-45); HEMOGLOBIN 14.5 g/dL (11.5-14.8); LYMPHOCYTES # (AUTO) 1.8 /CMM (0.8-4.8); LYMPHOCYTES % (AUTO) 17.4 % (20.0-44.0); MEAN CORPUSCULAR HGB CONC 34 g/dl (31.0-36.0); MEAN CORPUSCULAR VOLUME 87 fL (82-100); MONOCYTES # (AUTO) 0.5 /CMM (0.1-1.30); MONOCYTES % (AUTO) 4.6 % (2.0-12.0); NEUTROPHILS # (AUTO) 7.9 /CMM (1.8-8.9); NEUTROPHILS % (AUTO) 76.9 % (43.0-81.0); PLATELET COUNT (AUTO) 255 /CMM (150-450); RED BLOOD CELL COUNT(AUTO) 4.91 MIL/uL (4.0-5.2); WHITE BLOOD COUNT (AUTO) 10.3 K/uL (4.3-11.0)
[2019-05-29 13:48] LABS: CALCIUM, SERUM 9.7 mg/dL (8.5-10.1); CARBON DIOXIDE 25 mmol/L (21-32); CHLORIDE 100 mmol/L (98-107); CREATININE 0.9 mg/dL (0.6-1.3); GLUCOSE 228 mg/dL (74-106); POTASSIUM 3.6 mmol/L (3.5-5.1); SODIUM SERUM 133 mmol/L (136-145); UREA NITROGEN, BLOOD 19 mg/dL (7-18)
[2019-05-29 13:54] LABS: ALANINE AMINOTRANSFERASE 61 U/L (12-78); ALBUMIN 4.3 g/dL (3.4-5.0); ALKALINE PHOSPHATASE 135 U/L (46-116); ASPARTATE AMINOTRANSFERASE 32 U/L (15-37); BILIRUBIN,DIRECT 0.1 mg/dL (0.0-0.2); BILIRUBIN,TOTAL 0.5 mg/dL (0.2-1.0)
[2019-05-29] MEDS ORDERED: ONDANSETRON HCL/PF 4 MG/2 ML VIAL ONE ×2 (13:59→14:31)
--- NOTE | 2019-05-29 13:59 | NUR ---
VERBAL ORDER FROM DR. DEL CID: ZOFRAN 4MG IVP
[2019-05-29] MEDS ORDERED: ONDANSETRON HCL/PF - ER 4 MG/2 ML VIAL IV ONE ×2 (14:00→14:30)
[2019-05-29 14:17] LABS: APPEARANCE,URINE Clear (CLEAR); BILIRUBIN,URINE Negative (NEGATIVE); BLOOD, URINE Negative Ery/uL (NEGATIVE); COLOR,URINE Yellow (YELLOW); KETONES,URINE Trace (NEGATIVE); LEUKOCYTE ESTERASE ,URINE Negative (NEGATIVE); NITRITE, URINE Negative (NEGATIVE); PH,URINE 6.5 (5.0-8.0); PROTEIN,URINE Negative (NEGATIVE); UGLUCOSE Negative (NEGATIVE); UROBILINOGEN,URINE 0.2 EU/dL (0.2)
[2019-05-29] MEDS ORDERED: HYDROMORPHONE 1 MG/1 ML DISP.SYRIN ONE ×2 (14:18→15:40)
[2019-05-29] MEDS ORDERED: IV NS 0.9% 1,000 ML IV ONE ×2 (14:30→16:00)
[2019-05-29] MEDS ORDERED: HYDROMORPHONE 1 MG/1 ML DISP.SYRIN IV ONE (14:30)
[2019-05-29] MEDS ORDERED: KETOROLAC TROMETHAMINE INJ 30 MG/ML VIAL ONE (15:39)
[2019-05-29] MEDS ORDERED: HYDROMORPHONE INJ 0.5 MG/0.5 ML SYRINGE IV ONE (16:00)
[2019-05-29] MEDS ORDERED: KETOROLAC TROMETHAMINE INJ 30 MG/ML VIAL IV ONE (16:00)
--- NOTE | 2019-05-29 17:01 | NUR ---
VALENTÍN PEREZ REQUESTING CALL BACK REGARDING TRANSFER OF THIS PATIENT, EXT [phone]
--- NOTE | 2019-05-29 17:10 | NUR ---
verbal auth from susi auth#[id number]
--- NOTE | 2019-05-29 17:21 | NUR ---
PAGED DR STAPLETON
--- NOTE | 2019-05-29 17:35 | NUR ---
[id number] [facility]
--- NOTE | 2019-05-29 17:38 | NUR ---
report given to kenisha fonseca for doni
--- NOTE | 2019-05-29 18:17 | NUR ---
pt transported to 3rd floor
--- NOTE | 2019-05-29 18:23 | NUR ---
received patient via gurney. Patient awake, alert and oriented x4 , at bedside. Patient denies pain at this time and VA are stable on room air. IV line to the right forearm g 20 HL flushing well. Skin inspected and intact. Patient oriented to unit and room. Safety precautions implemented and patient educated to use call light. Patien able ambulate , gait steady. Dr. Carver paged and informed. Awaiting for adm. orders. Will endorse to next shift for KJ.
[2019-05-29 18:30] VITALS: BP 134/74
[2019-05-29 18:34] VITALS: BP 131/83
[2019-05-29] MEDS ORDERED: ACETAMINOPHEN 325 MG TABLET PO PRN (19:00)
[2019-05-29] MEDS ORDERED: ONDANSETRON HCL/PF 4 MG/2 ML VIAL IVP PRN (19:00)
[2019-05-29] MEDS ORDERED: MAGNESIUM HYDROXIDE 30 ML UDC PO PRN (19:00)
[2019-05-29] MEDS ORDERED: HYDROCODONE/APAP 5/325MG 1 EACH TABLET PO PRN ×2 (19:00→23:00)
[2019-05-29] MEDS ORDERED: Z GUARD REMEDY 2 OZ OINT TP PRN (19:00)
[2019-05-29] MEDS ORDERED: IV NS 0.9% 1,000 ML IV PRN (19:00)
[2019-05-29] MEDS ORDERED: MAG HYDROX/AL HYDROX/SIMETH 30 ML UDC PO PRN (19:00)
--- NOTE | 2019-05-29 19:30 | NUR ---
MS/RN NOTES RECEIVED PT. LYING IN BED. PT. IS AWAKE, ALERT AND ORIENTED X3. BREATHING EVEN AND UNLABORED ON ROOM AIR. NO SOB, RESPIRATORY DISTRESS OR COMPLAINTS OF PAIN NOTED AT THIS TIME. PT. WITH RIGHT FOREARM 20 GAUGE IV SALINE LOCK PRESENT, PATENT AND INTACT. ORIENTED PT. TO ROOM. PT. PRESENT AT BEDSIDE. PER DAYSHIFT NURSE PT. WILL BE NPO AFTER MIDNIGHT FOR POSSIBLE SURGERY AND PT. HAS UROLOGIST CONSULT SCHEDULED FOR TOMORROW. EDUCATED PT. ON BEING NPO AFTER MIDNIGHT. PT. VERBALIZED UNDERSTANDING. BED LOCKED AND IN LOWEST POSITION, SIDE RAILS UP X2, CALL LIGHT WITHIN REACH, WILL CONTINUE TO MONITOR.
[2019-05-29 20:00] VITALS: BP 131/67
--- NOTE | 2019-05-29 20:00 | NUR ---
MS/RN NOTES PT. FAMILY MEMBERS PRESENT AT BEDSIDE. PT. DAUGHTER KAYLI IS REQUESTING TO BE CALLED AND INFORMED ONCE PT. IS SEEN BY UROLOGIST TOMORROW SO THAT SHE KNOWS IF AND WHEN SURGERY IS HAPPENING AND THE PLAN OF CARE. MICHELLE CELL PHONE NUMBER: . WILL CONTINUE TO MONITOR.
[2019-05-29] MEDS ORDERED: HYDROMORPHONE 1 MG/1 ML DISP.SYRIN IV PRN (21:00)
--- NOTE | 2019-05-29 21:58 | NUR ---
MS/RN NOTES RECEIVED CALL FROM UROLOGY CONSULT DR. TAVIA STAPLETON. NOTIFIED DR. STAPLETON THAT PT. HAS NO COMPLAINTS OF PAIN SINCE BEGINNING OF SHIFT AND THAT PT. WAS COMPLAINING OF SEVERE PAIN WHILE IN THE ER, RECEIVED PAIN MEDICATION THERE AND PAIN HAS GONE AWAY SINCE THEN. PER DR. STAPLETON NEW ORDERS: CHANGE PT.TO NPO EXCEPT MEDS. CHANGE PAIN MEDICATION REGIMEN: NORCO 5-325 1 TAB PO Q4H PRN MILD PAIN 1-3, NORCO 10-325 1 TAB PO Q6 HOUR PRN MODERATE PAIN, CHANGE IV FLUIDS TO NS @ 200ML/HR. NEW ORDER: VALIUM 5MG PO HS STARTING TONIGHT. AND STRAIN URINE FOR KIDNEY STONES AND MONITOR PT. FOR PAIN. WILL CARRY OUT ORDERS. WILL CONTINUE TO MONITOR.
[2019-05-29] MEDS ORDERED: TAMSULOSIN 0.4 MG CAP.SR.24H PO SCH (22:00)
[2019-05-29] MEDS ORDERED: DIAZEPAM 5 MG TABLET PO SCH (22:30)
[2019-05-29] MEDS ORDERED: HYDROCODONE/APAP 10/325MG 1 EA TABLET PO PRN (22:30)
[2019-05-30] MEDS: IV NS 0.9% 1,000 ML IV PRN ×2 (03:38→09:53)
[2019-05-30 06:37] LABS: BASOPHILS # (AUTO) 0.1 /CMM (0.0-0.2); BASOPHILS % (AUTO) 0.8 % (0.0-2.0); EOSINOPHILS % (AUTO) 1.2 % (0.0-6.0); HEMATOCRIT 36 % (33-45); LYMPHOCYTES # (AUTO) 1.9 /CMM (0.8-4.8); LYMPHOCYTES % (AUTO) 26.5 % (20.0-44.0); MEAN CORPUSCULAR HGB CONC 34 g/dl (31.0-36.0); MEAN CORPUSCULAR VOLUME 88 fL (82-100); MONOCYTES # (AUTO) 0.7 /CMM (0.1-1.30); MONOCYTES % (AUTO) 9.4 % (2.0-12.0); NEUTROPHILS # (AUTO) 4.5 /CMM (1.8-8.9); NEUTROPHILS % (AUTO) 62.1 % (43.0-81.0); PLATELET COUNT (AUTO) 201 /CMM (150-450); RED BLOOD CELL COUNT(AUTO) 4.06 MIL/uL (4.0-5.2); WHITE BLOOD COUNT (AUTO) 7.2 K/uL (4.3-11.0)
--- NOTE | 2019-05-30 06:55 | NUR ---
MS/RN NOTES PT. IS LYING IN BED RESTING. BREATHING EVEN AND UNLABORED ON ROOM AIR. NO SOB, RESPIRATORY DISTRESS OR COMPLAINTS OF PAIN NOTED AT THIS TIME. PT. WITH RIGHT FOREARM 20 GAUGE PERIPHERAL IV PRESENT, PATENT AND INTACT ADMINISTERING TO PT. NS @ 200ML/HR. PT. REMAINS NPO EXCEPT MEDS AT THIS TIME. NO COMPLAINTS OF PAIN NOTED AT THIS TIME AND THROUGHOUT SHIFT. 1 KIDNEY STONE WAS FOUND WHILE STRAINING THE PT.'S URINE. KIDNEY STONE WAS PLACED IN SPECIMEN CONTAINER AND WILL ENDORSE TO DAYSHIFT NURSE TO FOLLOW UP IF NEEDED TO BE SENT TO LAB. WILL ENDORSE TO DAYSHIFT NURSE TO CONTINUE STRAINING URINE FOR MORE STONES. ALL PT. NEEDS MET. BED LOCKED AND IN LOWEST POSITION, SIDE RAILS UP X2, CALL LIGHT WITHIN REACH, WILL ENDORSE TO DAYSHIFT NURSE FOR CONTINUITY OF CARE.
[2019-05-30 07:02] LABS: CALCIUM, SERUM 8.3 mg/dL (8.5-10.1); CREATININE 0.8 mg/dL (0.6-1.3); MAGNESIUM 1.9 mg/dL (1.8-2.4); PHOSPHORUS 3.4 mg/dL (2.5-4.9); POTASSIUM 3.3 mmol/L (3.5-5.1)
--- NOTE | 2019-05-30 07:36 | NUR ---
MS RN OPENING NOTES PATIENT RECEIVED IN BED ASLEEP. PATIENT IS BREATHING EVENLY, WITH SYMMETRICAL CHEST WALL ELEVATION AND NO SIGNS OF RESPIRATORY DISTRESS NOTES. NO SIGNS OF PAIN SUCH FACIAL GRIMACING, GUARDING OR MOANING NOTED AT THIS TIME. PATIENT HAS A SL ON RFA GAUGE # 20. NO SIGNS OF INFILTRATION NOTES AT THE SITE. SAFETY PRECAUTIONS IN PLACE: BED IN LOW POSITION AND LOCKED, RAILS UP X 2, CALL LIGHT WITHIN REACH. WILL CONTINUE TO MONITOR THE PATIENT.
[2019-05-30 08:00] VITALS: BP 117/78
--- NOTE | 2019-05-30 08:39 | NUR ---
M/S RN NOTES PER DR. STAPLETON SEND OUT RENAL STONE SPECIMEN TO PATHOLOGY FOR ANALYSIS. INFORMED MD THAT PATIENT WITH NO C/O PAIN AT THIS TIME. PER MD PATIENT IS CLEAR TO GO HOME.
[2019-05-30] MEDS: POTASSIUM CL. PREMIX PERIPHER. 50 ML IV SCH ×2 (09:53→11:18)
--- NOTE | 2019-05-30 13:04 | NUR ---
RN NOTES MORNING LABS FOR POTASSIUM CAME BACK LOW. PHARMACY NOTIFIED. 2 BAGS OF POTASSIUM (10 MEQ IN 50 ML) ADMINISTERED OVER ONE HOUR EACH.
--- NOTE | 2019-05-30 14:41 | NUR ---
M/S RN NOTES PATIENT DISCHARGED IN STABLE CONDITION, VSS, NO RESPIRATORY DISTRESS, NO C/O PAIN. SKIN WARM TO TOUCH, SKIN ASSESSED, NO SKIN BREAKDOWN. PATIENT'S IV REMOVED AND APPLIED PRESSURE DRESSING. BELONGS ACCOUNTED FOR, SIGNED AND PUT IN THE CHART. PATIENT GIVEN DISCHARGE INSTRUCTIONS, VERBALIZED UNDERSTANDING. PATIENT'S NEEDS ATTENDED. PATIENT ESCORTED TO LOBBY IN WHEELCHAIR WITH FAMILY. PATIENT LEFT VIA PRIVATE CAR.
== END 2019-05-30 14:40 | disposition home or self-care (01) | DRG 465 ==
LOC: ER 12:55 → MED 18:01
PROVIDERS: ADMIT Internal Medicine; ATTEND Internal Medicine
DX: N13.2 Hydronephrosis with renal and ureteral calculous obstruction (principal); N17.0 Acute kidney failure with tubular necrosis; E87.1 Hypo-osmolality and hyponatremia; E86.1 Hypovolemia; I10 Essential (primary) hypertension
CPT/HCPCS: 36415; 71045-TC; 80048-TC; 80076-TC; 81000-TC; 83735-TC; 84100-TC; 84484-TC; 85025-TC; 87081-TC; G0378; J1170; J1885; J2405; J3480; J7030

== ENCOUNTER 2020-08-27 02:22 | Emergency (ER) | payer SELFPAY ==
[~2020-08-27] VITALS: Ht 172.7 cm; Wt 93.0 kg
--- NOTE | 2020-08-27 02:27 | NUR ---
BIBSELF C/O CHEST PRESSURE RADIATING TO R ARM SINCE 2300. PT TOOK AMLODIPINE 5MG PO. PT AAOX4, -SOB. PLACED ON MONITOR, VSS ,PENDING ER PROVIDER JESSICA
[2020-08-27] MEDS ORDERED: NITROGLYCERIN PACKET 1 GM PACKET TD ONE (03:00)
[2020-08-27] MEDS ORDERED: ASPIRIN 81 MG TAB.CHEW PO ONE (03:00)
[2020-08-27 03:18] LABS: BASOPHILS % (AUTO) 0.2 % (0.0-2.0); EOSINOPHILS % (AUTO) 5.6 % (0.0-6.0); HEMATOCRIT 41 % (33-45); LYMPHOCYTES # (AUTO) 2.2 /CMM (0.8-4.8); LYMPHOCYTES % (AUTO) 30.3 % (20.0-44.0); MEAN CORPUSCULAR HGB CONC 34 g/dl (31.0-36.0); MEAN CORPUSCULAR VOLUME 85 fL (82-100); MONOCYTES # (AUTO) 0.6 /CMM (0.1-1.30); MONOCYTES % (AUTO) 8.8 % (2.0-12.0); NEUTROPHILS % (AUTO) 55.1 % (43.0-81.0); PLATELET COUNT (AUTO) 223 /CMM (150-450); RED BLOOD CELL COUNT(AUTO) 4.82 MIL/uL (4.0-5.2); WHITE BLOOD COUNT (AUTO) 7.2 K/uL (4.3-11.0)
[2020-08-27] MEDS ORDERED: NITROGLYCERIN PACKET 1 GM PACKET ONE (03:23)
[2020-08-27] MEDS ORDERED: ASPIRIN 81 MG TAB.CHEW ONE (03:23)
[2020-08-27 03:44] LABS: ALANINE AMINOTRANSFERASE 61 U/L (12-78); ALKALINE PHOSPHATASE 109 U/L (46-116); ASPARTATE AMINOTRANSFERASE 34 U/L (15-37); BILIRUBIN,DIRECT 0.1 mg/dL (0.0-0.2); BILIRUBIN,TOTAL 0.5 mg/dL (0.2-1.0); CALCIUM, SERUM 9.8 mg/dL (8.5-10.1); CARBON DIOXIDE 24 mmol/L (21-32); CHLORIDE 103 mmol/L (98-107); CREATININE 0.7 mg/dL (0.6-1.3); GLUCOSE 173 mg/dL (74-106); POTASSIUM 3.5 mmol/L (3.5-5.1); SODIUM SERUM 139 mmol/L (136-145); TOTAL PROTEIN, SERUM 7.6 g/dL (6.4-8.2); UREA NITROGEN, BLOOD 15 mg/dL (7-18)
--- NOTE | 2020-08-27 06:58 | NUR ---
Patient discharged to home in stable condition. Written and verbal after care instructions given. Patient verbalizes understanding of instruction. IV removed. Catheter intact and site benign. Pressure and 4x4 applied to site. No bleeding noted.
[2020-08-27 07:04] VITALS: BP 99/66
== END 2020-08-27 07:05 | disposition home or self-care (01) ==
LOC: ER 02:22
DX: R07.89 Other chest pain (principal); I10 Essential (primary) hypertension; Z98.890 Other specified postprocedural states
CPT/HCPCS: 36415; 71045-TC; 80048-TC; 80076-TC; 84484-TC; 85025-TC

== ENCOUNTER 2021-01-25 22:50 | Emergency (ER) | payer OTHER ==
[~2021-01-25] VITALS: Ht 167.6 cm; Wt 97.5 kg
[2021-01-25] MEDS ORDERED: NITROGLYCERIN 0.4 MG/TAB BOTTLE SL ONE (23:30)
[2021-01-25] MEDS ORDERED: ASPIRIN 81 MG TAB.CHEW PO ONE (23:30)
[2021-01-25 23:37] LABS: BASOPHILS # (AUTO) 0.2 K/uL (0.0-0.2); BASOPHILS % (AUTO) 2.2 % (0.0-2.0); EOSINOPHILS % (AUTO) 4.6 % (0.0-6.0); HEMATOCRIT 40 % (33-45); HEMOGLOBIN 13.8 g/dL (11.5-14.8); LYMPHOCYTES # (AUTO) 3.1 K/uL (0.8-4.8); LYMPHOCYTES % (AUTO) 39.2 % (20.0-44.0); MEAN CORPUSCULAR HGB CONC 34 g/dl (31.0-36.0); MEAN CORPUSCULAR VOLUME 86 fL (82-100); MONOCYTES # (AUTO) 0.9 K/uL (0.1-1.30); MONOCYTES % (AUTO) 10.8 % (2.0-12.0); NEUTROPHILS # (AUTO) 3.4 K/uL (1.8-8.9); NEUTROPHILS % (AUTO) 43.2 % (43.0-81.0); PLATELET COUNT (AUTO) 242 K/uL (150-450); RED BLOOD CELL COUNT(AUTO) 4.67 MIL/uL (4.0-5.2)
[2021-01-25] MEDS ORDERED: NITROGLYCERIN 0.4 MG/TAB BOTTLE ONE (23:37)
[2021-01-25] MEDS ORDERED: ASPIRIN 81 MG TAB.CHEW ONE (23:38)
--- NOTE | 2021-01-25 23:42 | NUR ---
RAD AT BEDSIDE
[2021-01-25 23:50] LABS: CALCIUM, SERUM 9.4 mg/dL (8.5-10.1); CARBON DIOXIDE 30 mmol/L (21-32); CHLORIDE 105 mmol/L (98-107); CREATININE 0.6 mg/dL (0.6-1.3); GLUCOSE 147 mg/dL (74-106); POTASSIUM 4.1 mmol/L (3.5-5.1); SODIUM SERUM 142 mmol/L (136-145); UREA NITROGEN, BLOOD 15 mg/dL (7-18)
[2021-01-26] MEDS ORDERED: ASPI-1169 PO (01:25)
--- NOTE | 2021-01-26 01:35 | NUR ---
Patient discharged to home in stable condition. Written and verbal after care instructions given. Patient verbalizes understanding of instruction. Patient does not wish to proceed with medical care recommended by Dr. Gooden. Patient given information related to possible complications, up to and including , which could occur as a result of leaving the hospital at this time. Patient verbalizes understanding of risks involved due to leaving against medical advice. Patient has signed AMA form.
[2021-01-26 01:54] VITALS: BP 136/68
== END 2021-01-26 01:54 | disposition left against medical advice (07) ==
LOC: ER 22:51
DX: R07.89 Other chest pain (principal); I10 Essential (primary) hypertension; Z98.890 Other specified postprocedural states
CPT/HCPCS: 36415; 71045-TC; 80048-TC; 84484-TC; 85025-TC

== ENCOUNTER 2022-07-23 00:22 | Emergency (ER) | payer OTHER ==
[~2022-07-23] VITALS: Ht 167.6 cm; Wt 99.8 kg
[~2022-07-23 00:22] MED LIST changes: +ASPI-1169 PO; -ATOR20TA PO; -PRED20TA PO
--- NOTE | 2022-07-23 01:00 | NUR ---
BIBHUSBAND. MID STERNAL PRESSURE NON RADIAITING 8/10 X 1500. DENIES ANY ASSOCIATED N/V, DIZZINESS, OR SOB. AWAKE AND ALERT X4 BREATHING UNLABORED. PLACED ON BENCH WORKER AND PULSE OX.
--- NOTE | 2022-07-23 01:05 | NUR ---
PHLEB AT BEDSIDE FOR BLOOD DRAW
[2022-07-23 01:20] LABS: BASOPHILS # (AUTO) 0.1 K/uL (0.0-0.2); BASOPHILS % (AUTO) 1.3 % (0.0-2.0); EOSINOPHILS % (AUTO) 4.4 % (0.0-6.0); HEMATOCRIT 40 % (33-45); HEMOGLOBIN 13.2 g/dL (11.5-14.8); LYMPHOCYTES # (AUTO) 2.4 K/uL (0.8-4.8); LYMPHOCYTES % (AUTO) 37.6 % (20.0-44.0); MEAN CORPUSCULAR HGB CONC 33 g/dl (31.0-36.0); MEAN CORPUSCULAR VOLUME 87 fL (82-100); MONOCYTES # (AUTO) 0.6 K/uL (0.1-1.30); MONOCYTES % (AUTO) 8.9 % (2.0-12.0); NEUTROPHILS # (AUTO) 3.1 K/uL (1.8-8.9); NEUTROPHILS % (AUTO) 47.8 % (43.0-81.0); PLATELET COUNT (AUTO) 226 K/uL (150-450); RED BLOOD CELL COUNT(AUTO) 4.56 MIL/uL (4.0-5.2); WHITE BLOOD COUNT (AUTO) 6.4 K/uL (4.3-11.0)
[2022-07-23 01:32] LABS: ALANINE AMINOTRANSFERASE 61 U/L (12-78); ALBUMIN 3.8 g/dL (3.4-5.0); ALKALINE PHOSPHATASE 141 U/L (46-116); ASPARTATE AMINOTRANSFERASE 35 U/L (15-37); BILIRUBIN,DIRECT 0.1 mg/dL (0.0-0.2); BILIRUBIN,TOTAL 0.3 mg/dL (0.2-1.0); CALCIUM, SERUM 9.2 mg/dL (8.5-10.1); CARBON DIOXIDE 28 mmol/L (21-32); CHLORIDE 102 mmol/L (98-107); GLUCOSE 169 mg/dL (74-106); POTASSIUM 3.4 mmol/L (3.5-5.1); SODIUM SERUM 135 mmol/L (136-145); TOTAL PROTEIN, SERUM 7.3 g/dL (6.4-8.2); UREA NITROGEN, BLOOD 16 mg/dL (7-18)
[2022-07-23 04:20] VITALS: BP 119/75
--- NOTE | 2022-07-23 04:20 | NUR ---
Patient discharged to home in stable condition. Written and verbal after care instructions given. Patient verbalizes understanding of instruction.
== END 2022-07-23 04:21 | disposition home or self-care (01) ==
LOC: ER 00:24
DX: R07.89 Other chest pain (principal); I10 Essential (primary) hypertension; Z87.442 Personal history of urinary calculi; Z90.710 Acquired absence of both cervix and uterus; Z79.82 Long term (current) use of aspirin
CPT/HCPCS: 36415; 71045-TC; 80048-TC; 80076-TC; 84484-TC; 85025-TC; 85730-TC

== ENCOUNTER 2024-02-07 21:47 | Emergency (ER) | payer OTHER ==
[~2024-02-07] VITALS: Ht 175.3 cm; Wt 99.8 kg
--- NOTE | 2024-02-07 22:42 | NUR ---
BIBS FROM [place] [facility] RADIAt IN STERNUM PAIN 03/14,HEALTHCARE ADMINISTRATION INTERN BP 150/95
[2024-02-07] MEDS ORDERED: KETOROLAC TROMETHAMINE INJ 30 MG/ML VIAL ONE (22:47)
[2024-02-07] MEDS ORDERED: ASPIRIN 325 MG TABLET ONE (22:48)
--- NOTE | 2024-02-07 22:55 | NUR ---
Established IV line on left forearm G20, blood specimen collected sent to lab
[2024-02-07] MEDS: KETOROLAC TROMETHAMINE INJ 30 MG/ML VIAL IV ONE (23:00)
[2024-02-07 23:01] LABS: BASOPHILS # (AUTO) 0.1 K/uL (0.0-0.2); BASOPHILS % (AUTO) 1.4 % (0.0-2.0); EOSINOPHILS # (AUTO) 0.2 K/uL (0.0-0.7); EOSINOPHILS % (AUTO) 2.7 % (0.0-6.0); HEMATOCRIT 40 % (33-45); HEMOGLOBIN 13.3 g/dL (11.5-14.8); LYMPHOCYTES # (AUTO) 2.3 K/uL (0.8-4.8); LYMPHOCYTES % (AUTO) 36.7 % (20.0-44.0); MEAN CORPUSCULAR HEMOGLOBIN 29 PG (26.0-33.0); MEAN CORPUSCULAR HGB CONC 33 g/dl (31.0-36.0); MEAN CORPUSCULAR VOLUME 86 fL (82-100); MONOCYTES # (AUTO) 0.6 K/uL (0.1-1.30); MONOCYTES % (AUTO) 9.2 % (2.0-12.0); NEUTROPHILS # (AUTO) 3.2 K/uL (1.8-8.9); PLATELET COUNT (AUTO) 211 K/uL (150-450); RED BLOOD CELL COUNT(AUTO) 4.66 MIL/uL (4.0-5.2); RED CELL DISTRIBUTION WIDTH 13.8 % (11.5-15.0); WHITE BLOOD COUNT (AUTO) 6.4 K/uL (4.3-11.0)
[2024-02-07] MEDS: ASPIRIN 325 MG TABLET PO ONE (23:01)
[2024-02-07 23:15] LABS: INR 1.03 (0.91-1.10); PROTHROMBIN TIME 10.9 SECS (9.2-11.1)
[2024-02-07 23:18] LABS: ALANINE AMINOTRANSFERASE 42 U/L (12-78); ALBUMIN 3.6 g/dL (3.4-5.0); ALKALINE PHOSPHATASE 109 U/L (46-116); ASPARTATE AMINOTRANSFERASE 24 U/L (15-37); BILIRUBIN,DIRECT 0.1 mg/dL (0.0-0.2); BILIRUBIN,TOTAL 0.5 mg/dL (0.2-1.0); CALCIUM, SERUM 9.3 mg/dL (8.5-10.1); CARBON DIOXIDE 30 mmol/L (21-32); CHLORIDE 106 mmol/L (98-107); CREATININE 0.9 mg/dL (0.6-1.3); GLUCOSE 195 mg/dL (74-106); POTASSIUM 3.8 mmol/L (3.5-5.1); SODIUM SERUM 141 mmol/L (136-145); TOTAL PROTEIN, SERUM 7.1 g/dL (6.4-8.2); UREA NITROGEN, BLOOD 14 mg/dL (7-18)
--- NOTE | 2024-02-07 23:44 | NUR ---
Patient discharged to home in stable condition. Written and verbal after care instructions given. Patient verbalizes understanding of instruction.
[2024-02-07 23:53] VITALS: BP 119/78; TEMP 98.3; O2SAT 99
== END 2024-02-07 23:56 | disposition home or self-care (01) ==
LOC: ER 21:48
DX: R07.9 Chest pain, unspecified (principal); R06.02 Shortness of breath; I10 Essential (primary) hypertension; Z87.442 Personal history of urinary calculi; Z90.710 Acquired absence of both cervix and uterus
CPT/HCPCS: 99285; 96374; 71045; 93005; 85025; 80048; 80076; 36415; 84484; 85730; J1885

== ENCOUNTER 2024-04-19 15:16 | Emergency (ER) | payer OTHER ==
[~2024-04-19] VITALS: Ht 175.3 cm; Wt 94.8 kg
[2024-04-19] MEDS ORDERED: KETOROLAC TROMETHAMINE 15 MG/ML VIAL ONE (16:41)
[2024-04-19] MEDS: IV NS 0.9% 500 ML BAG IV ONE (16:45)
[2024-04-19] MEDS: KETOROLAC TROMETHAMINE 15 MG/ML VIAL IV ONE (16:46)
[2024-04-19 16:47] LABS: BASOPHILS # (AUTO) 0.2 K/uL (0.0-0.2); BASOPHILS % (AUTO) 2.2 % (0.0-2.0); EOSINOPHILS # (AUTO) 0.2 K/uL (0.0-0.7); HEMATOCRIT 42 % (33-45); HEMOGLOBIN 14.1 g/dL (11.5-14.8); LYMPHOCYTES # (AUTO) 2.4 K/uL (0.8-4.8); LYMPHOCYTES % (AUTO) 34.9 % (20.0-44.0); MEAN CORPUSCULAR HEMOGLOBIN 29 PG (26.0-33.0); MEAN CORPUSCULAR HGB CONC 33 g/dl (31.0-36.0); MEAN CORPUSCULAR VOLUME 87 fL (82-100); MONOCYTES # (AUTO) 0.6 K/uL (0.1-1.30); MONOCYTES % (AUTO) 9.3 % (2.0-12.0); NEUTROPHILS # (AUTO) 3.4 K/uL (1.8-8.9); NEUTROPHILS % (AUTO) 50.6 % (43.0-81.0); PLATELET COUNT (AUTO) 241 K/uL (150-450); RED BLOOD CELL COUNT(AUTO) 4.83 MIL/uL (4.0-5.2); RED CELL DISTRIBUTION WIDTH 13.1 % (11.5-15.0); WHITE BLOOD COUNT (AUTO) 6.8 K/uL (4.3-11.0)
[2024-04-19 16:55] LABS: CALCIUM, SERUM 9.7 mg/dL (8.5-10.1); CARBON DIOXIDE 31 mmol/L (21-32); CHLORIDE 105 mmol/L (98-107); CREATININE 0.9 mg/dL (0.6-1.3); GLUCOSE 169 mg/dL (74-106); SODIUM SERUM 140 mmol/L (136-145); UREA NITROGEN, BLOOD 15 mg/dL (7-18)
[2024-04-19 19:38] VITALS: BP 119/91; TEMP 98.1; O2SAT 100
== END 2024-04-19 19:39 | disposition home or self-care (01) ==
LOC: ER 15:21
DX: R07.89 Other chest pain (principal); I10 Essential (primary) hypertension; Z79.82 Long term (current) use of aspirin; Z90.710 Acquired absence of both cervix and uterus; Z87.442 Personal history of urinary calculi
CPT/HCPCS: 99285; 96374; 71045; 96361; 93005; 85025; 80048; 36415; 84484 ×2; J7040; J1885